=== PATIENT | female | born 1955 | race American Indian/Alaskan Native ===

== ENCOUNTER 2016-10-18 10:21 | Emergency (ER) | payer BC ==
[2016-10-18] MEDS ORDERED: NACL 0.9% 1000 ML 1,000 ML IV ONE (10:36)
[2016-10-18 11:46] LABS: Basophils % (Auto) 0.4 % (0.0-1.8); Eosinophils % (Auto) 1.5 % (0.0-4.3); Hematocrit 40.1 % (30.3-42.9); Hemoglobin 13.1 gm/dl (10.1-14.3); Mean Corpuscular HGB Conc 33 % (30-34); Mean Corpuscular Hemoglobin 29 pg (28-32); Mean Corpuscular Volume 89 fl (79-97); Platelet Count 355 K/mm3 (140-440); Red Cell Distribution Width 14.5 % (13.2-15.2); White Blood Count 8.9 K/mm3 (4.5-11.0)
[2016-10-18 11:47] LABS: Alanine Aminotransferase 91 units/L (7-56); Albumin 3.7 g/dL (3.9-5); Albumin/Globulin Ratio 1.1 %; Alkaline Phosphatase 117 units/L (35-129); Anion Gap 18 mmol/L; Bilirubin,Total 0.3 mg/dL (0.1-1.2); Blood Urea Nitrogen 13 mg/dL (7-17); Carbon Dioxide 22 mmol/L (22-30); Chloride 98.2 mmol/L (98-107); Glucose 203 mg/dL (65-100); Lipase 57 units/L (13-60); Sodium 134 mmol/L (137-145); Total Protein 7.1 g/dL (6.3-8.2)
[2016-10-18 11:50] LABS: INR 0.91 (0.87-1.13)
[2016-10-18 11:51] LABS: Partial Thromboplastin Time 26.8 Sec. (24.2-36.6)
--- NOTE | 2016-10-18 20:38 | Emergency Department Report ---
HPI - General Chief Complaint: Nausea/Vomiting/Diarrhea Time Seen by Provider: 10/18/16 20:13 - HPI HPI: This is a 61-year-old Afro-[place] female presents to the emergency department from home with complaint of a 5 day history of some lower abdominal cramping discomfort and diarrhea. On the first day, Saturday, the patient had nausea with 6 episodes of vomiting. There is been no further nausea or vomiting since but the diarrhea has continued. The past 2 and half days the patient has been taking Pepto-Bismol and says it has not provided any relief and has caused her to have some darker stools. She denies any fever, back pain, vaginal bleeding or discharge, dysuria. She has a past medical history of [place] in 2007, coronary stents, hypertension, diabetes and psoriasis. No recent travel or sick contacts at home. She has just changed to a new primary care doctor and does not know their name but also has not seen them regarding her symptoms. ED Past Medical Hx - Medications Home Medications: Home Medications Medication Instructions Recorded Confirmed Last Taken Type Adalimumab [Humira] 40 mg SQ QMONTH 10/18/16 10/18/16 10/18/16 History AtorvaSTATin [Lipitor] 20 mg PO QID 10/18/16 10/18/16 10/18/16 History Carvedilol [Coreg] 25 mg PO BID 10/18/16 10/18/16 10/18/16 History Hydrochlorothiazide [HCTZ] 25 mg PO QDAY 10/18/16 10/18/16 10/18/16 History ISOSORBIDE MONOnitrate [Imdur ER] 60 mg PO QDAY 10/18/16 10/18/16 10/18/16 History Insulin Detemir [Levemir VIAL] 0 unit SQ QHS 10/18/16 10/18/16 10/18/16 History Liraglutide [Victoza 2-Sami] 0.6 mg SQ QDAY 10/18/16 10/18/16 10/18/16 History Lisinopril [Zestril TAB] 40 mg PO QDAY 10/18/16 10/18/16 10/18/16 History amLODIPine [Norvasc] 10 mg PO DAILY 10/18/16 10/18/16 10/18/16 History metFORMIN [Glucophage] 500 mg PO QDAY 10/18/16 10/18/16 10/18/16 History ED Review of Systems ROS: Stated complaint: N/V/D Other details as noted in HPI Comment: All other systems reviewed and negative Constitutional: denies: chills, fever Eyes: denies: eye pain, eye discharge, vision change ENT: denies: ear pain, throat pain Respiratory: denies: cough, shortness of breath, wheezing Cardiovascular: denies: chest pain, palpitations Gastrointestinal: abdominal pain, nausea, vomiting, diarrhea Genitourinary: denies: urgency, dysuria, discharge Musculoskeletal: denies: back pain, joint swelling, arthralgia Skin: denies: rash, lesions Neurological: denies: headache, weakness, paresthesias Physical Exam - Physical Exam Vital Signs: Vital Signs 10/18/16 10:32 Temperature 98.1 F Pulse Rate 77 Blood Pressure 135/76 Physical Exam: GENERAL: The patient is well-developed well-nourished. HEENT: Normocephalic. Atraumatic. Extraocular motions are intact. Patient has moist mucous membranes. Pupils equal reactive to light bilaterally. NECK: Supple. Trachea is midline. CHEST/LUNGS: Clear to auscultation. There is no respiratory distress noted. HEART/CARDIOVASCULAR: Regular. There is no tachycardia. There is no gallop rub or murmur. ABDOMEN: Abdomen is soft. Mild tenderness palpation to the lower quadrants of the abdomen. No guarding rebound tenderness. Patient has hyperactive bowel sounds. There is no abdominal distention. SKIN: Skin is warm and dry. NEURO: The patient is awake, alert, and oriented. The patient is cooperative. The patient has no focal neurologic deficits. The patient has normal speech. MUSCULOSKELETAL: There is no tenderness or deformity. There is no limitation range of motion. There is no evidence of acute injury. ED Course Vital Signs 10/18/16 10:32 Temperature 98.1 F Pulse Rate 77 Blood Pressure 135/76 ED Medical Decision Making - Lab Data Result diagrams: 10/18/16 11:14 10/18/16 11:14 - Radiology Data Radiology results: report reviewed, image reviewed interpreted by me: Abdominal x-ray shows nonspecific nonobstructive bowel gas and a large amount of stool throughout the colon. CT of the abdomen and pelvis with IV contrast shows fatty infiltration of liver. There is mild wall thickening and prominence of the mucosal folds in the multiple loops of small bowel suggesting nonspecific enteritis. No other abnormalities visualized. No signs of obstruction. - Medical Decision Making 61-year-old female presents the emergency department with the complaint of some lower abdominal discomfort and diarrhea. His vital signs are stable throughout her ED course. The labs are mostly unremarkable other than some mild hyperglycemia and elevation and her ALT with a value of 90. She does not appear to be in DKA or HHNK. Abdominal x-ray shows nonobstructive nonspecific bowel gas. A CT was done that shows fatty infiltration of the liver and some nonspecific enteritis. No signs of bowel obstruction. Patient will be discharged home to follow-up with her primary care doctor and will return to the ER with any worsening symptoms or any acute distress. - Differential Diagnosis enteritis, colitis, bowel obstruction, infectious diarrhea Critical Care Time: No Critical care attestation.: If time is entered above; I have spent that time in minutes in the direct care of this critically ill patient, excluding procedure time. ED Disposition Clinical Impression: Abdominal pain Qualifiers: Abdominal location: lower abdomen, unspecified Qualified Code(s): R10.30 - Lower abdominal pain, unspecified Diarrhea Qualifiers: Diarrhea type: unspecified type Qualified Code(s): R19.7 - Diarrhea, unspecified Disposition: DISCHARGED TO HOME OR SELFCARE Is pt being admited?: No Condition: Stable Instructions: Abdominal Pain (ED), Acute Diarrhea (ED) Additional Instructions: Please follow-up with a primary care doctor the next few days. Return to the emergency department with any worsening of your symptoms or any acute distress. Referrals: PRIMARY CAREMD [Primary Care Provider] - 3-5 Days Time of Disposition: 01:06
[2016-10-18 21:44] LABS: Bilirubin,Urine NEG (Negative); Blood,Urine NEG (Negative); Ketones,Urine NEG (Negative); Leukocyte Esterase,Urine NEG (Negative); Mucus,Urine FEW /HPF; Nitrite,Urine NEG (Negative); Protein,Urine <15 mg/dL mg/dL (Negative); Urobilinogen,Urine < 2.0 mg/dL (<2.0); WBC,Urine < 1.0 /HPF (0.0-6.0)
[2016-10-18 22:56] VITALS: BP 120/60
--- NOTE | 2016-10-19 00:40 | Cat Scan Report ---
FINAL REPORT PROCEDURE: CT ABDOMEN PELVIS W CON TECHNIQUE: Computerized axial tomography of the abdomen and pelvis was performed after the IV injection of iodinated nonionic contrast. HISTORY: Abd pain COMPARISON: No prior studies are available for comparison. FINDINGS: Lower Lung hollis: No sinificant abnormality seen. Upper Abdomen: Liver density is diffusely decreased consistent with fatty infiltration. There is sparing of fatty infiltration adjacent to the gallbladder fossa. The gallbladder showed no abnormality. The adrenal glands, the pancreas in the spleen are unremarkable. Kidneys, Ureters and Urinary bladder: No abnormalities are identified. Retroperitoneum: Atherosclerotic changes are seen in the abdominal aorta. No aneurysm is visualized. Nonspecific subcentimeter lymph nodes are seen in the retroperitoneum. No pathologically enlarged lymph nodes are identified. Bowel: No evidence of bowel obstruction. There is no free intraperitoneal gas or ascites visualized. Mucosal folds throughout numerous small bowel loops in the left side of the abdomen and upper abdomen appear mildly thickened suggesting a nonspecific enteritis. Normal-appearing appendix is seen in the right lower quadrant. Minimal umbilical hernia containing adipose tissue is visualized. No herniated loops of bowel are seen. Reproductive organs: Uterus and adnexa are unremarkable. Other: No acute bony abnormalities are visualized. IMPRESSION: Fatty infiltration of the liver. Mild wall thickening a prominence of the mucosal folds in multiple loops of small bowel as described suggesting a nonspecific enteritis. No evidence of bowel obstruction No other abnormalities are visualized.
--- NOTE | 2016-10-19 08:29 | XRay Report ---
ABDOMEN RADIOGRAPHS INDICATION: Abdominal pain. COMPARISON: None similar at this institution. FINDINGS: Frontal abdominal radiographs demonstrate nonobstructive bowel gas pattern. Small faint densities projecting about the right L3 transverse process and over the right iliac bone nonspecific, though possibly ingested tablets. Mild colonic stool. No focal suspicious calcifications, pneumatosis or pneumoperitoneum. Clear visualized lung bases. Mild bony degenerative changes. CONCLUSION: No acute abdominal radiographic abnormality, as described. Thank you for the opportunity to participate in this patient's care.
== END 2016-10-19 02:47 | disposition home or self-care (01) ==
LOC: ED 10:21
DX: R10.30 Lower abdominal pain, unspecified (principal); R19.7 Diarrhea, unspecified; I25.2 Old myocardial infarction; I10 Essential (primary) hypertension; E11.9 Type 2 diabetes mellitus without complications; Z79.4 Long term (current) use of insulin
CPT/HCPCS: 36415; 74020; 74177; 80053; 81001; 82962; 83690; 85025; 85610; 85730; 99285; Q9967

== ENCOUNTER 2016-10-30 12:56 | Outpatient (CLI) | payer BC ==
--- NOTE | 2016-10-30 14:01 | Mammography Report ---
Bilateral diagnostic mammogram and sonogram of area of pain in left breast and nodule right breast: History: Left breast pain. Findings: Predominance of adipose tissue bilaterally. Circumscribed 4 mm nodule upper outer anterior right breast. Benign appearing calcifications right breast. Sonographic examination reveals no mass left breast parenchyma in the region of pain. There is a lymph node identified measuring 0.4 x 0.9 x 0.4 cm in diameter at the approximate 10:00 position 10 cm from nipple corresponding to the nodule. Impression: No mass left breast. Benign lymph node right breast. For probably benign calcification right breast comparison with previous studies is recommended. If previous studies are not available a spot magnification view advised. BI-RADS CATEGORY: 0 = Needs additional imaging evaluation ACR BI-RADS MAMMOGRAPHIC CODES: 0 = Needs additional imaging evaluation; 1 = Negative; 2 = Benign; 3 = Probably benign; 4 = Suspicious; 5 = Malignant; 6 = Known biopsy-proven malignancy COMMENT: 1. Dense breast tissue, i.e., adenosis, fibrocystic changes, etc., may obscure an underlying neoplasm. 2. Approximately 10% of cancers are not detected with mammography. 3. A negative mammography report should not delay biopsy if a clinically suspicious mass is present.
== END 2016-10-30 12:57 | disposition home or self-care (01) ==
LOC: MAMMO 12:56
PROVIDERS: ATTEND Internal Medicine
DX: N63 Unspecified lump in breast (principal); R92.1 Mammographic calcification found on diagnostic imaging of breast
CPT/HCPCS: 76642; G0204; 77066; G0206-LT